=== PATIENT | female | born 1940 | race Caucasian/White ===

== ENCOUNTER 2025-01-21 16:32 | Inpatient (IN) | payer MEDICARE ==
[~2025-01-21] VITALS: Ht 154.9 cm; Wt 79.6 kg
[~2025-01-21 16:32] MED LIST: ANAS1TAB10 PO; CALC-111 PO; CHOL400T27 PO; LISI-222 PO; METAMUCIL1 EACH PO; MULT-785 PO; NAPR-1166 PO; OMEP-84 PO; PRE1OS OP
--- NOTE | 2025-01-21 17:10 | Physician Documentation ---
History of Present Illness ~ Chief Complaint: Abdominal Pain w/vomiting Stated Complaint: N/V Time Seen by MD: 17:02 Primary Medical Doctor: Lilli URIARTE 84-year-old female who presents with sudden onset of nausea vomiting and diarrhea. She tells me that she was feeling fine this morning. She went out to a restaurant for lunch. She then went home and immediately developed sudden onset of abdominal cramping, nausea vomiting and diarrhea. The pain in her abdomen is worse in the central lower abdomen. She denies any fevers or chills. No sick contacts. No blood in the vomit or stool. No respiratory symptoms. She arrives by EMS. They did give Zofran and this did improve her symptoms. She is no longer significantly nauseous and is requesting water. Patient signed out to me by Dr. Stearns to follow up CT scan which demonstrated evidence of diverticulitis. IV zosyn, pain medications, zofran, care transferred to hospitalist. Medication Reconciliation Allergies: Coded Allergies: codeine (Unverified Allergy, Unknown, 01/21/25) Nausea. prednisone (Verified Allergy, Unknown, HIGH BLOOD PRESSURE AND NAUSEA, 01/21/25) Scheduled Anastrozole* (Arimidex*), 1 TAB PO DAILY, (Reported) Calcium Carbonate/Vitamin D3 (Calcium 600 + Vit D Tablet), 600 MG PO TID, (Reported) Cholecalciferol (Vitamin D3) (Vitamin D3), 400 UNIT PO TID, (Reported) Lisinopril* (Lisinopril*), 20 MG PO DAILY, (Reported) Multivitamins* (Multivitamin*), 1 EACH PO DAILY, (Reported) Naproxen (Naproxen), 1 TABLET PO BID Omeprazole* (Prilosec*), 20 MG PO DAILY, (Reported) Prednisolone Acetate (PREDNISOLONE ACETATE ophth suspension), 1 DRP OP TID, (Reported) Psyllium Seed (Metamucil), 1 EACH PO DAILY, (Reported) Scheduled PRN ONDANSETRON ODT 4mg tablet (Ondansetron Odt), 1 TAB PO Q6H PRN PRN for nausea/vomiting Past Medical History Past Medical History: Breast Cancer Past Surgical History: cancer surgery Alcohol Use: None Drug Use: none Lives with: Spouse Lives In: Home Occupation: retired Review of Systems Gastrointestinal: Reports: abdominal pain, nausea, vomiting, diarrhea Physical Exam Vital Signs: Temperature: 97.5, Source: Oral, Heart Rate: 87, Respiratory Rate: 16, BP: 183/62, Pulse Oximetry: 96, Weight: 72.000 Oxygen Flow Rate: 0 Physical Exam General: This is a nontoxic-appearing older female, sitting calmly in bed HEENT: Atraumatic, oropharynx appears dry Heart: Regular rate and rhythm, normal-appearing peripheral perfusion Lungs: normal work of breathing, normal oxygen saturation on room air Abdomen: Soft, nondistended. She does have tenderness in the lower abdomen, otherwise nontender, no rebound or guarding Neuro: Alert and oriented, no focal deficits Psychiatric: Calm and cooperative with exam Progress Results/Orders Results/Orders Orders - FOUZIA JACKSON MD Ultrasound Of Abdomen (01/21/25 19:15) Piperacillin/Tazo 3.375gm/50ml (Zosyn 3. (01/22/25 00:00) Page Hospitalist (01/21/25 ) Ondansetron Inj. (Zofran 4mg/2ml Vial) (01/21/25 20:45) Completed Orders - FOUZIA JACKSON MD Ultrasound Of Abdomen (01/21/25 19:15) Hydromorphone 0.5 Mg/0.5 Ml/Pf (Dilaudid (01/21/25 19:50) Medications Received in ER Medications (Trade) Dose Ordered Sig/Elier Route PRN Reason Start Time Stop Time Status Last Admin Dose Admin Sodium Chloride 500 ml @ 500 mls/hr ONCE ONCE IV 01/21/25 17:20 01/21/25 18:19 DC 01/21/25 17:23 500 MLS/HR (Dilaudid inj.) 0.5 mg ONCE ONCE IV 01/21/25 19:50 01/21/25 19:51 DC 01/21/25 20:39 0.5 MG Vital Signs 01/21/25 01/21/25 01/21/25 01/21/25 17:00 17:23 17:27 20:02 Temp 97.5 Pulse 87 89 Resp 16 16 16 B/P (MAP) 183/62 159/55 (89) Pulse Ox 96 96 O2 Flow Rate 0 01/21/25 20:39 Resp 16 Laboratory Tests Test 01/21/25 17:36 01/21/25 18:38 01/21/25 19:46 CBC Comment Sodium Level 141 Potassium Level 3.6 Chloride Level 107 Carbon Dioxide Level 22.1 L Anion Gap 12 Blood Urea Nitrogen 15 Creatinine 1.20 H Estimated GFR/1.73 m2 43 BUN/Creatinine Ratio 12.5 Glucose Level 124 H Calcium Level 9.2 Albumin 3.6 Lipase 39 Chemistry Comments White Blood Count 16.2 H Red Blood Count 4.83 Hemoglobin 14.4 Hematocrit 42.7 Mean Corpuscular Volume 88.3 Mean Corpuscular Hemoglobin 29.8 Mean Corpuscular Hemoglobin Concent 33.7 Red Cell Distribution Width 14.5 Platelet Count 150 Mean Platelet Volume 8.7 Neutrophils (%) (Auto) 91.0 H Lymphocytes (%) (Auto) 2.4 L Monocytes (%) (Auto) 6.5 Eosinophils (%) (Auto) 0 Basophils (%) (Auto) 0.1 Neutrophils # (Auto) 14.7 H Lymphocytes # (Auto) 0.4 L Monocytes # (Auto) 1.0 H Eosinophils # (Auto) 0.0 Basophils # (Auto) 0.0 Differential Total Cells Counted 100 Neutrophils % (Manual) 93.0 H Lymphocytes % (Manual) 2.0 L Monocytes % (Manual) 5.0 Platelet Estimate Normal Red Blood Cell Morphology Normal Basophilic Stippling Urine Specimen Description Cln catch midstream Urine Color Yellow Urine Clarity Cloudy Urine pH 5.5 Urine Specific Allred <=1.005 Urine Protein 100 H Urine Glucose (UA) Negative Urine Ketones Trace H Urine Occult Blood Moderate H Urine Nitrite Negative Urine Bilirubin Negative Urine Urobilinogen 0.2 Urine Leukocyte Esterase Negative Urine RBC 0-2 Urine WBC 0-4 Urine Squamous Epithelial Cells Many Urine Bacteria 1+ Urine Culture Indicated Not ind Volume Urine Centrifuged 10 ml Urine Comment Re-Evaluation Re-Evaluation : Re-Evaluation: Improved Progress 6:15 p.m.: Re-evaluation: The patient states that her nausea has improved. However she is complaining of significant lower abdominal pain. On exam she is very tender especially in the left lower quadrant. After shared decision-making conversation, we will proceed with a CT scan to rule out dangerous intra- abdominal process. Medical Decision Making Additional info obtained from: family Findings Family later reports that she did have some small amounts of bright red blood in her stool after having multiple episodes of diarrhea. She does have a history of hemorrhoids. There was no blood mixed into the stool. Additional Comments Differential includes food poisoning, viral syndrome, gastritis, dehydration, electrolyte derangement, pancreatitis, UTI Assessment The patient presents with sudden onset of nausea vomiting and diarrhea, as well as abdominal pain, after eating in a restaurant. Per her history and exam, this seems most consistent with food poisoning or stomach virus. Her nausea has already improved after Zofran from EMS. She was given IV fluids for hydration. Chemistry panel grossly unremarkable. CBC pending. She continued to have significant lower abdominal pain so a CT scan was ordered and is pending. The patient was signed out at shift change, pending CT scan into determine disposition. If the CT scan is normal, I feel she can be discharged home with nausea medication for presumed food poisoning. Departure Disposition: ADMITTED INPATIENT Impression: Primary Impression: Diverticulitis Condition: Improved Referrals: NO PRIMARY CARE PROVIDER (PCP) Prescriptions ONDANSETRON ODT 4mg tablet (ONDANSETRON ODT) 4 Mg Tab.rapdis 1 TAB PO Q6H PRN PRN for nausea/vomiting for 4 Days, #16 TAB 0 Refills Prov: GERSON STEARNS MD 01/21/25 Education Educated: Patient, Family Educated regarding: diagnosis, treatment, prognosis, need for follow up Signature Scribe Signature: . Attestation: . GERSON STEARNS MD January 21, 2025 17:10 FOUZIA JACKSON MD January 21, 2025 20:47
[2025-01-21] MEDS ORDERED: normal saline 1000ml 1,000 ML IV ONE (17:15)
[2025-01-21] MEDS: normal saline 500ml IV soln 500 ML IV ONE (17:23)
[2025-01-21 17:55] LABS: ALBUMIN 3.6 G/DL (3.4-5.0); ANION GAP 12 (8-16); BLOOD UREA NITROGEN 15 MG/DL (7-18); BUN/CREATININE RATIO 12.5 (10.0-20.0); CALCIUM 9.2 MG/DL (8.5-10.1); CHLORIDE 107 MMOL/L (99-107); GLUCOSE 124 MG/DL (70-104); LIPASE 39 U/L (16-77); POTASSIUM 3.6 MMOL/L (3.5-5.1); SODIUM 141 MMOL/L (135-145); TOTAL CARBON DIOXIDE 22.1 MMOL/L (24-32); eCRCL 25 ML/MIN; eGFR 43 ML/MIN
[2025-01-21] MEDS ORDERED: iohexol 300mg/ml 100ml inj. ONE (18:29)
[2025-01-21] MEDS ORDERED: ONDA-243 PO (18:42)
[2025-01-21 18:48] LABS: BASOPHILS % (AUTO) 0.1 % (0-1); EOSINOPHILS % (AUTO) 0 % (0-6); HEMATOCRIT 42.7 % (35.0-45.0); HEMOGLOBIN 14.4 g/dl (12.0-16.0); LYMPHOCYTES # (AUTO) 0.4 X10'3 (1.1-4.8); LYMPHOCYTES % (AUTO) 2.4 % (21-51); MEAN CORPUSCULAR HEMOGLOBIN 29.8 PG (27.0-31.0); MEAN CORPUSCULAR HGB CONC 33.7 g/dL (33.0-36.5); MEAN CORPUSCULAR VOLUME 88.3 FL (78-98); MEAN PLATELET VOLUME 8.7 FL (7.4-10.4); MONOCYTES % (AUTO) 6.5 % (2-12); NEUTROPHILS # (AUTO) 14.7 X10'3 (1.8-7.7); PLATELET COUNT 150 X10'3 (140-440); RED BLOOD COUNT 4.83 X10'6 (4.20-5.60); RED CELL DISTRIBUTION WIDTH 14.5 % (11.5-14.5); WHITE BLOOD COUNT 16.2 X10'3 (4.5-11.0)
[2025-01-21 19:46] LABS: PLATELET ESTIMATE NORMAL; TOTAL CELLS COUNTED 100
[2025-01-21 20:06] LABS: BILIRUBIN,URINE NEGATIVE (Neg); CLARITY,URINE CLOUDY (Clear); COLOR,URINE YELLOW (Yellow); GLUCOSE, URINE NEGATIVE (Neg); KETONES,URINE TRACE mg/dl (Neg); LEUKOCYTE ESTERASE ,URINE NEGATIVE (Neg); NITRITES, URINE NEGATIVE (Neg); OCCULT BLOOD,URINE MODERATE (Neg); PH,URINE 5.5 (4.8-8.0); PROTEIN,URINE 100 mg/dl (Neg); UROBILINOGEN,URINE 0.2 E.U/dL (0.2-1.0)
[2025-01-21 20:09] LABS: UA COLLECTION TYPE CLN CATCH MIDSTREAM
[2025-01-21 20:15] LABS: BACTERIA,URINE 1+ /HPF (Neg); RBC,URINE 0-2 /HPF (0-2)
[2025-01-21 20:16] LABS: WBC,URINE 0-4 /HPF (0-4)
[2025-01-21 20:17] LABS: SQUAMOUS EPITHELIAL CELL,UR MANY /LPF (FEW)
[2025-01-21] MEDS: HYDROmorphone inj. 0.5 MG/0.5 ML DISP.SYRIN IV ONE (20:39)
[2025-01-21] MEDS ORDERED: ATOR20TA66 PO (20:46)
[2025-01-21] MEDS ORDERED: HYDR-3973 PO (20:46)
[2025-01-21] MEDS: ondansetron/PF 4mg/2ml inj IV ONE (20:52)
--- NOTE | 2025-01-21 21:19 | RADIOLOGY REPORT ---
Procedure: US ULTRASOUND OF [facility] Study Date and Requested Time: 01/21/2025 07:57 PM History: abdominal pain Comparison: None Technique: Multiple high resolution simpson-scale images obtained of the right upper quadrant of the abd omen with color Doppler for evaluation of blood flow and vascularity as indicated. Findings: Liver normal in size, measuring 14 cm in length, with increased echogenicity and normal contours. No evidence of intrahepatic or extrahepatic ductal dilatation. 0.7 x 0.5 x 0.5 cm echogenic hepatic les ion. Common bile duct measures 0.6 cm in diameter. Cholelithiasis without evidence of gallbladder wall thickening or pericholecystic free fluid. Negativ e sonographic castaneda's sign. Pancreas is obscured by bowel gas. Right kidney measures 10 cm in length, with normal contours, echotexture, and cortical thickness. No evidence of hydronephrosis, calculi, cystic or solid renal lesions. Partially visualized inferior vena cava unremarkable. Impression: Cholelithiasis without evidence of acute cholecystitis. 0.7 cm echogenic hepatic lesion which may represent lipoma versus hemangioma with malignancy not excl uded. Hepatic protocol CT /MRI should be considered for further evaluation.
[2025-01-21] MEDS ORDERED: magnesium Cl slow-release 64mg tablet PO PRN (21:20)
[2025-01-21] MEDS ORDERED: mag hydrox/Alum hydrox/simeth 30ml oral suspension PO PRN (21:20)
[2025-01-21] MEDS ORDERED: potassium Cl 20 mEq SR tablet PO PRN ×2 (21:20)
[2025-01-21] MEDS ORDERED: magnesium sulf-water 2g/50mL 50 ML IV PRN (21:20)
[2025-01-21] MEDS ORDERED: HYDROmorphone/PF 0.2 MG/ML SYRINGE IV PRN (21:20)
[2025-01-21] MEDS ORDERED: potassium Cl 40MEQ/1/2NS 520ml 520 ML IV PRN (21:20)
[2025-01-21] MEDS ORDERED: magnesium sulf-water 4G/100mL 100 ML IV PRN (21:20)
[2025-01-21] MEDS ORDERED: acetaminophen 325mg tablet PO PRN (21:20)
[2025-01-21] MEDS ORDERED: ondansetron/PF 4mg/2ml inj IV PRN (21:20)
[2025-01-21] MEDS ORDERED: magnesium hydroxide 30ml (MOM) UD suspension PO PRN (21:20)
[2025-01-21] MEDS: normal saline 1000ml 1,000 ML IV SCH (21:37)
[2025-01-21] MEDS: ringers solution, lacted 1,000 ML IV ONE (21:37)
[2025-01-21 21:59] LABS: MAGNESIUM 2.1 MG/DL (1.5-2.4)
--- NOTE | 2025-01-21 22:08 | HISTORY AND PHYSICAL-Residence ---
History & Physical Providers to CC Resident Creating Document: CHRIS SHER, ALE ~ History of Present Illness Primary Medical Doctor: Lilli Reason for Admit\Complaint: Acute left colitis History of Present Illness 84-year-old female with PMH of HTN, HLD, arthritis presented to ED with complaints of left lower quadrant abdominal pain, nausea, vomiting, diarrhea. Symptoms started approximately 12:00 p.m. afternoon after having a chicken sandwich. Initially started with vomitings approximately 2-3 episodes then patient started having crampy abdominal pain in left lower quadrant 6 to 8 in severity nonradiating. She has diarrhea passing loose stools 3-4 times. Endorsed noticing blood in stool. Denied fever, chills, rigors. Patient is absolutely fine and normal until this morning. Denied having these type of symptoms in the past. She had colonoscopy previously without evidence of significant abnormalities. No sees in travel, trauma or sick contacts exposure. Denied chest pain, SOB, urinary symptoms. Allergies: Coded Allergies: codeine (Unverified Allergy, Unknown, 01/21/25) Nausea. prednisone (Verified Allergy, Unknown, HIGH BLOOD PRESSURE AND NAUSEA, 01/21/25) Home Medications Home Medications Active Ondansetron Odt (Ondansetron HCl) 4 Mg Tab.rapdis 1 Tab PO Q6H PRN PRN 4 Days Naproxen 375 Mg Tablet 1 Tablet PO BID Reported Atorvastatin Calcium 20 Mg Tablet 1 Tab PO DAILY Hydrocodone-Apap 10-325 Tablet (Acetaminophen/Hydrocodone Bitart) 10mg/325mg Tablet 1 Tab PO Q6H PRN PREDNISOLONE ACETATE ophth suspension (Prednisolone Acetate) 1 Drp Drops 1 Drp OP TID Metamucil (Psyllium Seed) 1 Each Packet 1 Each PO DAILY Arimidex* (Anastrozole) 1 Mg Tablet 1 Tab PO DAILY Vitamin D3 (Cholecalciferol (Vitamin D3)) 400 Unit Tablet 400 Unit PO TID Calcium 600 + Vit D Tablet (Calcium/Vitamin D) 1 Each Tablet 600 Mg PO TID Prilosec* (Omeprazole) 20 Mg Capsule.dr 20 Mg PO DAILY Multivitamin* (Multivitamins) 1 Each Tablet 1 Each PO DAILY Lisinopril* (Lisinopril) 5 Mg Tablet 20 Mg PO DAILY Past Medical History Past Medical History Hypertension, hyperlipidemia, arthritis. Patient has history of breast lump underwent lumpectomy. Past Surgical History Surgical History Comment Post breast lumpectomy Past Social History Social History Comment Lives with , independent, walks without assistance Wine: Social type 3 to 4 times per week Cigarette: Quit several years ago, not a heavy smoker Denied other drug use Smoking: Non-Smoker Alcohol Use: None Drug Use: None Lives with: Spouse Lives In: Home Occupation: retired ROS All Other Systems: Reviewed and Negative Gastrointestinal: Reports: abdominal pain, nausea, vomiting, diarrhea Exam Vitals: Vital Signs Date Time Temp Pulse Resp B/P (MAP) Pulse Ox O2 Delivery O2 Flow Rate FiO2 01/21/25 20:48 108 20 124/56 (78) 93 0 01/21/25 17:00 97.5 General: General: Elderly female, mild obese, Awake and Alert, in mild distress due to abdominal pain. HEENT: Conjunctiva pink, Sclera clear, dry mucous membranes Neck: Supple without masses and tenderness. Resp: Unlabored. Lungs clear to auscultation bilaterally. Heart: Regular Rate and rhythm, normal S1 and S2 without murmur, rub or gallop. Abdomen: Soft, tenderness noted predominantly in left lower quadrant region. No guarding, no rigidity. No Yuan sign. No rebound tenderness. Extremities: No cyanosis,clubbing or edema. FORGING DIE FINISHER: Awake alert oriented x3. In mild distress. No motor deficits no sensory deficits cranial nerves intact. Skin: Warm and Dry. Diagnostic Data Last Recorded Lab Results: 01/21/25 1838 01/21/25 1736 Advance Care Planning Advanced Care plannin - 30 Minutes (Advanced care planning discussed at the bedside for approximately 15-20 minutes. All resuscitative measures including chest compressions, mechanical ventilation, defibrillation explained in detail. Patient acknowledged understanding all the resuscitative measures and opted for full code status.) Additional Plan 84-year-old female with PMH of HTN, HLD, arthritis presented to ED with complaints of left lower quadrant abdominal pain, nausea, vomiting, diarrhea. Symptoms started approximately 12:00 p.m. afternoon after having a chicken sandwich. On ED evaluation patient is afebrile with stable hemodynamics. Labs demonstrated leukocytosis with WBC of 16.2, neutrophilia, HGB 14.4, platelets 150. Ultrasound abdomen demonstrated cholelithiasis without evidence of cholecystitis. CT abdomen and pelvis report pending. Assessment and plan: Acute left colitis: LLQ pain, nausea, vomiting, diarrhea; symptoms started after eating chicken sandwich CT abdomen and pelvis: Acute colitis involving the left hemicolon with no evidence of perforation or abscess formation Started injection ceftriaxone 1 g Q daily, injection letrozole 500 mg IV eight hourly LR bolus 1 L, normal saline at 100 mL/hour Injection Dilaudid 0.5 mg q.4 IV prn NPO Follow up blood cultures, stool cultures and C diff toxin HTN: Home meds lisinopril 5 mg once daily Continue Arthritis: Hydrocodone 10 325 mg, continue Status post breast lumpectomy: Home med anastrozole 1 mg p.o. daily, currently on hold Code status: Full code DVT: Lovenox 40 mg subcutaneous once daily Nocturnal laboratory chemist attestation of resident HP. Attestation of HP only, care immediately directed to hospitalist team - Inflective colitis suspect [id number] ecoli, vs shigella, possible salmonella - Clear diet, Advanced as tolerated - Aspiration prcautions - Dario DVT Patient seen through remote audiovisual assessment through HIPAA compliant setup. All labs, flowsheets, and images reviewed. Date of Service: January 21, 2025 Billing Provider: ERICA CRUZ Jr., KOTESHWAREDDY, RES January 21, 2025 22:08 ERICA CRUZ Jr., DO January 22, 2025 03:11
--- NOTE | 2025-01-21 22:46 | RADIOLOGY REPORT ---
Clinical History Significant lower abdominal pain, vomiting and diarrhea Comparison None Technique: All CT scans at this medical facility are performed using dose modulation techniques as appropriate t o a performed exam including the following: Automated exposure control was utilized; adjustment of th e mA and/or kV according to patient size; and use of iterative reconstruction technique. All CT studies are reported to the Dose Index Registry of the [employer]. Contrast: OMNIPAQUE 300, 100ML Radiation Dose: CTDI (mGy): 24.13; DLP (mGy-cm): 1140.38 WENDY POPE, [id number] FINDINGS: Lower chest: Minimum bibasilar atelectasis. Liver: 2 cm left hepatic cyst. Hepatic calcified granulomata. Gallbladder: Unremarkable Pancreas: Unremarkable Spleen: Splenic calcified granulomata. Adrenals:Unremarkable Kidneys: Unremarkable Stomach: Small gastric hiatus hernia. Bowel:Evaluation of the bowel is limited and incomplete due to lack of oral contrast. The small harvey l is grossly unremarkable. Diffuse mural thickening with surrounding edema and stranding of fat is s een involving the left hemicolon. Diverticulosis of sigmoid colon with no evidence of acute divertic ulitis Urinary bladder:Unremarkable Reproductive organs:No pelvic masses. Hysterectomy Peritoneum, retroperitoneum, lymphadenopathy:Unremarkable Vascular structures: Atherosclerotic calcification of abdominal vasculature Abdominal wall:Unremarkable Musculoskeletal:No acute osseous abnormality IMPRESSION: Acute colitis involving the left hemicolon with no evidence of perforation or abscess formation This report was electronically signed by Zofia Chau MD on 01/21/2025 10:42:22 PM.
[2025-01-22] MEDS ORDERED: piperacillin/tazo 3.375gm/50ml 50 ML IV SCH ×2
[2025-01-22] MEDS ORDERED: haloperidol 10mg/5ml UD oral solution PO ONE (00:40)
[2025-01-22] MEDS: metroNIDAZOLE-Flagyl 500mg/NS 100 ML IV SCH (02:08)
[2025-01-22] MEDS: HYDROmorphone inj. 0.5 MG/0.5 ML DISP.SYRIN IV PRN (05:17)
[2025-01-22 05:54] LABS: BASOPHILS % (AUTO) 0.1 % (0-1); EOSINOPHILS % (AUTO) 0 % (0-6); HEMATOCRIT 40.5 % (35.0-45.0); HEMOGLOBIN 13.7 g/dl (12.0-16.0); LYMPHOCYTES # (AUTO) 0.7 X10'3 (1.1-4.8); LYMPHOCYTES % (AUTO) 3.3 % (21-51); MEAN CORPUSCULAR HEMOGLOBIN 29.6 PG (27.0-31.0); MEAN CORPUSCULAR HGB CONC 33.8 g/dL (33.0-36.5); MEAN CORPUSCULAR VOLUME 87.4 FL (78-98); MEAN PLATELET VOLUME 9.4 FL (7.4-10.4); MONOCYTES # (AUTO) 0.9 X10'3 (0-0.9); MONOCYTES % (AUTO) 4.3 % (2-12); NEUTROPHILS # (AUTO) 19.2 X10'3 (1.8-7.7); NEUTROPHILS % (AUTO) 92.3 % (42-75); PLATELET COUNT 153 X10'3 (140-440); RED BLOOD COUNT 4.63 X10'6 (4.20-5.60); RED CELL DISTRIBUTION WIDTH 14.4 % (11.5-14.5); WHITE BLOOD COUNT 20.8 X10'3 (4.5-11.0)
[2025-01-22 06:20] LABS: ALANINE AMINOTRANSFERASE 31 U/L (12-78); ALKALINE PHOSPHATASE 58 IU/L (46-116); ANION GAP 10 (8-16); ASPARTATE AMINO TRANSFERASE 33 U/L (10-37); BILIRUBIN,TOTAL 0.8 MG/DL (0.1-1.0); BLOOD UREA NITROGEN 19 MG/DL (7-18); BUN/CREATININE RATIO 14.3 (10.0-20.0); CALCIUM 8.6 MG/DL (8.5-10.1); CHLORIDE 105 MMOL/L (99-107); CREATININE 1.33 MG/DL (0.40-0.90); GLUCOSE 159 MG/DL (70-104); SODIUM 141 MMOL/L (135-145); TOTAL CARBON DIOXIDE 25.6 MMOL/L (24-32); TOTAL PROTEIN 5.9 G/DL (6.4-8.2); eCRCL 23 ML/MIN; eGFR 38 ML/MIN
[2025-01-22 06:32] VITALS: BP 152/59; PULSE 103; RESP 16; TEMP 98.4; O2SAT 95
[2025-01-22 08:00] VITALS: RESP 14
[2025-01-22] MEDS: K and/or MAG REPLACEMENT MC SCH (08:00)
[2025-01-22] MEDS: CefTRIAXone/D5W-Rocephin 1gm 50 ML IV SCH (08:14)
[2025-01-22] MEDS: enoxaparin 40mg/0.4ml syringe SUBCUT SCH (08:15)
[2025-01-22] MEDS: atorvastatin 20mg tablet PO SCH (08:16)
[2025-01-22] MEDS: lisinopril 20mg tablet PO SCH (08:18)
[2025-01-22] MEDS: pantoprazole 40mg Tablet.DR PO SCH (08:21)
--- NOTE | 2025-01-22 09:57 | PROGRESS NOTE- Residence ---
Progress Note - Resident Providers to CC Resident Creating Document: JOANIE PEARCE RES ~ Antibiotic Timeout Antibiotic Ordered?: Yes Subjective Patient was seen and examined at bedside. I found her to be delirious, oriented is x2; thinking she was in her home. and daughter Yashira ([phone]) were present the bedside. Explained the whole picture is including lab work, imaging studies, and pending stool studies. Answered all their questions. Objective Vital Signs Date Time Temp Pulse Resp B/P (MAP) Pulse Ox O2 Delivery O2 Flow Rate FiO2 01/22/25 08:18 103 01/22/25 06:32 98.4 16 152/59 (90) 95 Room Air 01/21/25 20:48 0 General: Drowsy, oriented with time and person, not oriented with place HEENT: Conjunctiva pink, Sclera clear, Mucus Membranes moist. Neck: Supple without masses and tenderness. Resp: Unlabored. Lungs clear to auscultation bilaterally. Heart: Regular Rate and rhythm, normal S1 and S2 without murmur, rub or gallop. Abdomen: Bowel sounds sluggish, LLQ tenderness, periumbilical tenderness, able to pass gas Extremities: No cyanosis,clubbing or edema. Skin: Warm and Dry. Result Diagram: 01/22/2551201/22/25512 Advance Care Planning Advanced Care plannin - 30 Minutes Assessment Assessment An 84-year-old female with the acute onset left lower quadrant abdominal pain, nausea, vomiting, and bloody diarrhea following food ingestions (chicken sandwich). Imaging revealed acute colitis involving the left colon without perforation or abscess. Lab showed significant leukocytosis (> 07489), raising concern for infectious colitis. Plan Plan Left lower quadrant pain/tenderness: Associated with N/V, bloody diarrhea: Acute inflammatory diarrhea; infectious versus noninfectious (ischemia) Sepsis present on admission: Source likely GI/colon, Tachypneic, marked leukocytosis CT abdomen/pelvis demonstrates acute colitis localized to the left colon with no evidence of perforation/abscess. Lab shows marked leukocytosis WBC more than 2000, raising concerns for infectious etiology More likely acute infectious colitis (Salmonella, Shigella, E coli, Campylobacter, C diff), stool tests pending Less likely ischemic colitis due to abrupt onset. - IV hydration; continue NS 100 mL/hour - N/V; Zofrant on board, PRN - Antibiotics: Rocephin and Flagyl to cover Gram-positive, Gram-negative, and anaerobes - Pain management; Dilaudid 0.5 mg every 4 hours as needed - GI consulted for possible scope, recommended treating as infectious colitis - Clear fluid diet, will advance as tolerated - Stool culture for ova/parasite, Cryptosporidium, Giardia, Campylobacter, Salmonella, Shigella, E coli Acute kidney injury: vasomotor nephropathy vs ATN Follow urine osmolality, serum osmolality, urine sodium and creatinine IV hydration - monitor BMP Delirium: Abrupt onset disorganized thinking, memory decline, agitation and combativeness IV hydration, treating underlying condition (acute infectious colitis/sepsis) Discussed with family (daughter & ) regarding reorientation of the patient Educated them that the symptoms may fluctuates throughout the day and worsens in the evening/ Degenerative joint disease/osteoarthritis: Continue home medications i.e. hydrocodone and naproxen Hypertension: Continue lisinopril DVT prophylaxis: Lovenox Code status: Full code Joanie Pearce Internal Medicine Resident Date of Service: January 22, 2025 Billing Provider: FROY RIOS MD,JOANIE, RES January 22, 2025 09:57
[2025-01-22 11:24] LABS: OSMOLALITY 299 MOSM/K (280-300)
[2025-01-22 12:25] LABS: C DIFF ANTIGEN NEGATIVE (NEGATIVE); C DIFF SPECIMEN=DIARRHEA? ACCEPTABLE; C DIFFICILE TOXINS A&B NEGATIVE (Neg)
[2025-01-22 18:00] VITALS: BP 146/49; PULSE 70; RESP 16; TEMP 97.9; O2SAT 99
[2025-01-22 18:01] LABS: CHOL/HDL RATIO 1.6 (0.00-4.99); CHOLESTEROL 113 MG/DL (0-200); HDL CHOLESTEROL 69 MG/DL (35-60); HEMOGLOBIN A1C 5.8 % (4.5-6.2); LDL CHOLESTEROL 35 MG/DL (50-100); TRIGLYCERIDES 54 MG/DL (20-135)
[2025-01-22 18:52] LABS: APTT 33 SECONDS (22-32); INR 1.3 INR; PROTHROMBIN TIME 13.2 SECONDS (9.0-12.0)
[2025-01-22 20:00] VITALS: RESP 16; O2SAT 97
[2025-01-22 22:00] VITALS: BP 118/49; PULSE 87; RESP 17; TEMP 100.3; O2SAT 93
[2025-01-23] MEDS: HYDROcodone/acetaminophen 10/325mg tab PO PRN (02:28)
[2025-01-23] MEDS: pantoprazole 40 MG vial IV ONE ×2 (02:37→02:39)
[2025-01-23 06:00] VITALS: BP 150/54; PULSE 92; RESP 16; TEMP 98.3; O2SAT 91
[2025-01-23 06:01] LABS: BASOPHILS % (AUTO) 0.1 % (0-1); EOSINOPHILS % (AUTO) 0.1 % (0-6); HEMATOCRIT 34.1 % (35.0-45.0); HEMOGLOBIN 11.5 g/dl (12.0-16.0); LYMPHOCYTES # (AUTO) 0.8 X10'3 (1.1-4.8); MEAN CORPUSCULAR HEMOGLOBIN 29.4 PG (27.0-31.0); MEAN CORPUSCULAR HGB CONC 33.5 g/dL (33.0-36.5); MEAN CORPUSCULAR VOLUME 87.5 FL (78-98); MEAN PLATELET VOLUME 9.4 FL (7.4-10.4); MONOCYTES # (AUTO) 1.2 X10'3 (0-0.9); MONOCYTES % (AUTO) 7.3 % (2-12); NEUTROPHILS # (AUTO) 14.4 X10'3 (1.8-7.7); NEUTROPHILS % (AUTO) 87.5 % (42-75); PLATELET COUNT 138 X10'3 (140-440); RED CELL DISTRIBUTION WIDTH 14.5 % (11.5-14.5); WHITE BLOOD COUNT 16.5 X10'3 (4.5-11.0)
[2025-01-23 06:18] LABS: ALANINE AMINOTRANSFERASE 23 U/L (12-78); ALBUMIN 2.3 G/DL (3.4-5.0); ALBUMIN/GLOBULIN RATIO 0.9 (1.1-1.5); ALKALINE PHOSPHATASE 82 IU/L (46-116); ANION GAP 7 (8-16); ASPARTATE AMINO TRANSFERASE 24 U/L (10-37); BILIRUBIN,TOTAL 0.9 MG/DL (0.1-1.0); BLOOD UREA NITROGEN 23 MG/DL (7-18); BUN/CREATININE RATIO 26.7 (10.0-20.0); CALCIUM 7.9 MG/DL (8.5-10.1); CHLORIDE 107 MMOL/L (99-107); CREATININE 0.86 MG/DL (0.40-0.90); GLUCOSE 121 MG/DL (70-104); POTASSIUM 3.6 MMOL/L (3.5-5.1); SODIUM 138 MMOL/L (135-145); TOTAL CARBON DIOXIDE 24.4 MMOL/L (24-32); TOTAL PROTEIN 4.9 G/DL (6.4-8.2); eCRCL 35 ML/MIN; eGFR 63 ML/MIN
[2025-01-23] MEDS: enoxaparin 30mg/0.3ml syringe SUBCUT SCH (07:53)
[2025-01-23 08:00] VITALS: RESP 16; O2SAT 91
--- NOTE | 2025-01-23 09:42 | PROGRESS NOTE- Residence ---
Progress Note - Resident Providers to CC Resident Creating Document: JOANIE PEARCE RES ~ Antibiotic Timeout Antibiotic Ordered?: Yes Subjective Patient was seen and examined at bedside. She was alert, awake, and oriented, sitting comfortably in her chair. She tolerated oral intake well and reported having a bowel movement last night. At the time of exam, her pain was well- controlled a three to 4/10. She was eating breakfast but declined the chicken broth, expressing concern that a previous chicken sandwich may have contributed to all of this. Objective Vital Signs Date Time Temp Pulse Resp B/P (MAP) Pulse Ox O2 Delivery O2 Flow Rate FiO2 01/23/25 08:00 16 91 Room Air 0.0 01/23/25 07:52 92 01/23/25 06:00 98.3 150/54 (86) General: Awake and Alert, no acute distress. HEENT: Conjunctiva pink, Sclera clear, Mucus Membranes moist. Neck: Supple without masses and tenderness. Resp: Unlabored. Lungs clear to auscultation bilaterally. Heart: Regular Rate and rhythm, normal S1 and S2 without murmur, rub or gallop. Abdomen: Mild LLQ tenderness, Bowel sounds present Extremities: No cyanosis,clubbing or edema. Skin: Warm and Dry. Result Diagram: 01/23/25 0513 01/23/25 0513 Coagulation Studies Laboratory Tests Test 01/22/25 18:20 Prothrombin Time 13.2 SECONDS (9.0-12.0) H INR International Normalized Ratio 1.3 INR Activated Partial Thromboplast Time 33 SECONDS (22-32) H Coagulation Comments Advance Care Planning Advanced Care plannin - 30 Minutes Assessment Assessment An 84-year-old female with the acute onset left lower quadrant abdominal pain, nausea, vomiting, and bloody diarrhea following food ingestions (chicken sandwich). Imaging revealed acute colitis involving the left colon without perforation or abscess. Lab showed significant leukocytosis (> 21537), raising concern for infectious colitis. Plan Plan Left lower quadrant pain/tenderness: Associated with N/V, bloody diarrhea: Acute inflammatory diarrhea; infectious versus noninfectious (ischemia) Sepsis present on admission: Source likely GI/colon, Tachypneic, marked leukocytosis CT abdomen/pelvis demonstrates acute colitis localized to the left colon with no evidence of perforation/abscess. Lab shows marked leukocytosis WBC more than 2000, raising concerns for infectious etiology More likely acute infectious colitis (Salmonella, Shigella, E coli, Campylobacter, C diff), stool tests pending Less likely ischemic colitis due to abrupt onset. - IV hydration; continue NS 100 mL/hour - N/V; Zofrant on board, PRN - Antibiotics: Rocephin and Flagyl to cover Gram-positive, Gram-negative, and anaerobes - Pain management; Dilaudid 0.5 mg every 4 hours as needed - GI consulted for possible scope, recommended treating as infectious colitis - Clear fluid diet, will advance as tolerated - Stool culture for ova/parasite, Cryptosporidium, Giardia, Campylobacter, Salmonella, Shigella, E coli - pending, C diff negative Acute kidney injury: vasomotor nephropathy vs ATN Follow urine osmolality, serum osmolality, urine sodium and creatinine IV hydration - monitor BMP Delirium: Abrupt onset disorganized thinking, memory decline, agitation and combativeness IV hydration, treating underlying condition (acute infectious colitis/sepsis) Discussed with family (daughter & ) regarding reorientation of the patient Educated them that the symptoms may fluctuates throughout the day and worsens in the evening/ Degenerative joint disease/osteoarthritis: Continue home medications i.e. hydrocodone and naproxen Hypertension: Continue lisinopril DVT prophylaxis: Lovenox Code status: Full code Disposition: Overall, she is clinically improving. Her WBC and procalcitonin levels are trending down, suggesting a positive response to the current antibiotic regime of Rocephin and Flagyl. Stool culture results are still pending. I also spoke to her daughter, Yashira Ac ([phone]), and provided an update on her condition. She was pleased to hear of her mother's improvement. We will re-evaluate her tomorrow for possible discharge. Joanie Pearce Internal Medicine Resident Date of Service: January 23, 2025 Billing Provider: FROY RIOS MD,JOANIE, RES January 23, 2025 09:42
[2025-01-23 10:00] VITALS: BP 86/53; PULSE 90; RESP 18; TEMP 98.3; O2SAT 95
[2025-01-23 11:00] VITALS: BP 131/47
[2025-01-23 18:00] VITALS: BP 131/43; PULSE 88; RESP 16; TEMP 98; O2SAT 94
[2025-01-23] MEDS: haloperidol 5mg tablet PO ONE (19:32)
[2025-01-23 22:00] VITALS: BP 125/51; PULSE 86; RESP 18; TEMP 97.7; O2SAT 95
[2025-01-24 06:00] VITALS: BP 163/67; PULSE 95; RESP 18; TEMP 97; O2SAT 94
[2025-01-24 06:13] LABS: BASOPHILS % (AUTO) 0.2 % (0-1); EOSINOPHILS # (AUTO) 0.1 X10'3 (0-0.9); EOSINOPHILS % (AUTO) 0.7 % (0-6); HEMATOCRIT 35.5 % (35.0-45.0); LYMPHOCYTES # (AUTO) 0.8 X10'3 (1.1-4.8); LYMPHOCYTES % (AUTO) 5.6 % (21-51); MEAN CORPUSCULAR HEMOGLOBIN 29.7 PG (27.0-31.0); MEAN CORPUSCULAR HGB CONC 33.6 g/dL (33.0-36.5); MEAN CORPUSCULAR VOLUME 88.2 FL (78-98); MEAN PLATELET VOLUME 9.3 FL (7.4-10.4); MONOCYTES # (AUTO) 1.1 X10'3 (0-0.9); MONOCYTES % (AUTO) 7.7 % (2-12); NEUTROPHILS # (AUTO) 12.2 X10'3 (1.8-7.7); NEUTROPHILS % (AUTO) 85.8 % (42-75); PLATELET COUNT 136 X10'3 (140-440); RED BLOOD COUNT 4.03 X10'6 (4.20-5.60); RED CELL DISTRIBUTION WIDTH 14.4 % (11.5-14.5); WHITE BLOOD COUNT 14.3 X10'3 (4.5-11.0)
[2025-01-24 06:40] LABS: ALANINE AMINOTRANSFERASE 20 U/L (12-78); ALBUMIN 2.3 G/DL (3.4-5.0); ALBUMIN/GLOBULIN RATIO 0.8 (1.1-1.5); ALKALINE PHOSPHATASE 79 IU/L (46-116); ANION GAP 9 (8-16); ASPARTATE AMINO TRANSFERASE 22 U/L (10-37); BILIRUBIN,TOTAL 0.7 MG/DL (0.1-1.0); BLOOD UREA NITROGEN 17 MG/DL (7-18); BUN/CREATININE RATIO 26.6 (10.0-20.0); CHLORIDE 107 MMOL/L (99-107); CREATININE 0.64 MG/DL (0.40-0.90); GLUCOSE 87 MG/DL (70-104); POTASSIUM 3.9 MMOL/L (3.5-5.1); SODIUM 138 MMOL/L (135-145); TOTAL CARBON DIOXIDE 22.3 MMOL/L (24-32); TOTAL PROTEIN 5.3 G/DL (6.4-8.2); eCRCL 48 ML/MIN; eGFR 88 ML/MIN
[2025-01-24 08:00] VITALS: RESP 18; O2SAT 94
[2025-01-24 10:00] VITALS: BP 136/61; PULSE 86; RESP 20; TEMP 97.8; O2SAT 95
[2025-01-24] MEDS ORDERED: enoxaparin 40mg/0.4ml syringe SUBCUT SCH (15:13)
--- NOTE | 2025-01-24 15:29 | DISCHARGE SUMMARY-Residence ---
Discharge Summary Providers to CC Resident Creating Document: GUILLERMINA HOLMANALE CORONEL ~ Discharge Summary Admission Diagnosis: DIverticulitis Hospital Course DATE OF ADMISSION: 01/21/2025 DATE OF DISCHARGE: 01/24/2025 Labs at the time of discharge WBC 14.3 Hemoglobin 12.0 Sodium 138 Potassium 3.9 Creatinine 0.64 BUN 17 Procalcitonin 1.62 A1c 5.8 TSH 0.6 Blood cultures, no growth after two days Stool culture-enteric pathogens, normal enteric mahin reduced Abdominal CT Acute colitis involving the left hemicolon with no evidence of perforation or abscess formation Abdominal ultrasound showed cholelithiasis without cholecystitis, 0.7 cm echogenic mass in the liver. Discharge Diagnosis\Comment: Acute inflammatory diarrhea-most likely infectious JESSIE secondary to vasomotor nephropathy Delirium Hypertension Operations\Procedures: None Consultants: None Complications: None Condition on DC: Stable Discharge Summary: This is an 84-year-old female with past medical history of hypertension, degenerative joint disease came to the ER with a chief complaint acute onset left lower quadrant abdominal pain, nausea, vomiting and bloody diarrhea following food ingestion(chicken sandwich). Imaging revealed acute colitis involving the left colon. Labs showed significant leukocytosis(>: [id number]). Patient is admitted for acute inflammatory diarrhea, possibly infectious. Sepsis present on admission, source likely GI/colon. Stool cultures negative for enteric pathogens, reduced normal GI mahin. C diff negative. Consulted GI specialist, recommended to continue treat has infectious diarrhea. Received boluses in the ER, started on NS@ 100 mL/hour. Started on antibiotics Rocephin and Flagyl. Started on clear liquid diet, advanced to full liquid diet. Patient had JESSIE likely secondary to vasomotor nephropathy at the time of admission, creatinine improved with IV fluids. Patient also had delirium, continued IV hydration, discussed with family regarding reradiation of the patient. Continued home medications hydrocodone and naproxen for history of degenerative joint disease/osteoarthritis. Continued home medication lisinopril for her hypertension. Patient has improved clinically, her diarrhea has improved. WBC and procalcitonin trended down. She is stable enough to be discharged. Patient had the following physical examination findings at the time of discharge General: Awake and Alert, no acute distress. HEENT: Conjunctiva pink, Sclera clear, Mucus Membranes moist. Neck: Supple without masses and tenderness. Resp: Unlabored. Lungs clear to auscultation bilaterally. Heart: Regular Rate and rhythm, normal S1 and S2 without murmur, rub or gallop. Abdomen: Mild LLQ tenderness, Bowel sounds present Extremities: No cyanosis,clubbing or edema. Skin: Warm and Dry. Discharge medications Cefdinir 300 mg b.i.d. for seven days Flagyl 500 mg b.i.d. for seven days Culturelle daily for six months Lisinopril 20 mg daily Atorvastatin 20 mg daily Pantoprazole 40 mg daily Follow up with PCP in 2 weeks. Continue cefdinir 300mg BID for 7 days. Continue flagyl 500mg BID for 7 days. Continue culturelle Po daily for 6 months. Call 911 or retorn to ER in case of unresolving abd pain, diarrhea. *Problems/Diagnosis: (1) Infectious diarrhea (2) Nausea vomiting and diarrhea Status: Resolved Total Time Spent on D/C: Up to 30 Minutes Date of Service: January 24, 2025 Billing Provider: FROY RIOS MD, PRAVAHIKA, RES January 24, 2025 15:21
== END 2025-01-24 15:49 | DRG 871 ==
LOC: ER 16:33 → ED HOLD 21:20 → ORTHO 4S 22:32
PROVIDERS: ADMIT Internal Medicine Critical Care Medicine; ATTEND Family Medicine
PROC: BW211ZZ Computerized Tomography (CT Scan) of Abdomen and Pelvis using Low Osmolar Contrast (ICD-10-PCS; principal; 2025-01-21)
DX: A41.9 Sepsis, unspecified organism (principal); N17.0 Acute kidney failure with tubular necrosis; A09 Infectious gastroenteritis and colitis, unspecified; K57.32 Diverticulitis of large intestine without perforation or abscess without bleeding; I10 Essential (primary) hypertension; E78.5 Hyperlipidemia, unspecified; K80.20 Calculus of gallbladder without cholecystitis without obstruction; R16.0 Hepatomegaly, not elsewhere classified; R41.0 Disorientation, unspecified; Z85.3 Personal history of malignant neoplasm of breast; Z88.8 Allergy status to other drugs, medicaments and biological substances; Z88.5 Allergy status to narcotic agent
CPT/HCPCS: 36415; 74177; 76700; 80048; 80053; 80061; 81001; 83036; 83605; 83690; 83735; 83930; 84100; 84145; 84443; 85007; 85025; 85610; 85730; 87040; 87045; 87046; 87081; 87324; 87449; 97116; 97161; 97530; 99285; G0378; J0696; J1171; J1650; J2405; J2470; J3490; J7030; J7040; J7120; Q9967